=== PATIENT | female | born 1965 | race Two or more races ===

== ENCOUNTER 2019-12-28 15:41 | Inpatient (IN) | payer OTHER ==
[~2019-12-28] VITALS: Ht 167.6 cm; Wt 72.1 kg
[2020-01-12] MEDS ORDERED: HYOSCYAMINE0.125 M1 SL (14:55)
[2020-01-12] MEDS ORDERED: OXYC1TAB9 PO (14:55)
== END 2020-01-12 17:05 | disposition home or self-care (01) | DRG 331 ==
LOC: EDSEX 01-02 09:30 → O/R 01-09 06:00 → SURH 01-09 06:00 → EDBD 01-09 09:30 → SURH 01-09 09:30
PROVIDERS: ADMIT Surgery; ATTEND Surgery
PROC: 0DBM4ZZ Excision of Descending Colon, Percutaneous Endoscopic Approach (ICD-10-PCS; 2020-01-09)
PROC: 0DNW4ZZ Release Peritoneum, Percutaneous Endoscopic Approach (ICD-10-PCS; 2020-01-09)
PROC: 0DJD8ZZ Inspection of Lower Intestinal Tract, Via Natural or Artificial Opening Endoscopic (ICD-10-PCS; 2020-01-09)
PROC: 0DTP4ZZ Resection of Rectum, Percutaneous Endoscopic Approach (ICD-10-PCS; principal; 2020-01-09 11:00)
DX: Z43.3 Encounter for attention to colostomy (principal); K66.0 Peritoneal adhesions (postprocedural) (postinfection); K62.4 Stenosis of anus and rectum

== ENCOUNTER 2020-01-07 06:00 | Day surgery (SDC) | payer OTHER | END 2020-01-07 13:30 | disposition home or self-care (01) | LOC: AMB-ENDOS 06:00 → EDBD 09:30 → AMB-ENDOS 09:30 | PROVIDERS: ATTEND Surgery | DX: K57.20 Diverticulitis of large intestine with perforation and abscess without bleeding (principal); Z20.828 Contact with and (suspected) exposure to other viral communicable diseases; Z93.3 Colostomy status ==